=== PATIENT | male | born 2000 | race Caucasian/White ===

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

== ENCOUNTER 2021-06-20 10:34 | Inpatient (IN) | payer MEDICAID, SELFPAY ==
[~2021-06-20] VITALS: Ht 175.3 cm; Wt 77.1 kg
[2021-06-20 10:35] VITALS: BP 137/77
--- NOTE | 2021-06-20 10:35 | NUR ---
BIBA TO BED 11.
--- NOTE | 2021-06-20 10:35 | NUR ---
Patient BIBA to bed 11 at this time.
--- NOTE | 2021-06-20 10:36 | NUR ---
Dr. Dye at bedside evaluating patient.
[2021-06-20] MEDS ORDERED: MORPHINE SULFATE 4 MG/ML SYR IVP ONE ×2 (10:40→16:25)
[2021-06-20] MEDS ORDERED: ONDANSETRON 4 MG/2 ML VIAL IVP ONE (10:40)
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
--- NOTE | 2021-06-20 10:49 | NUR ---
RAD at bedside
--- NOTE | 2021-06-20 10:49 | NUR ---
Dimitry simon and blood samples handed to CPT Stephanie at ER bedside
--- NOTE | 2021-06-20 11:05 | NUR ---
Padding provided to support LLE. All pt needs met.
[2021-06-20 11:09] LABS: EOSINOPHILS % (AUTO) 0.1 % (0.0-4.0); HEMATOCRIT 24.9 % (36-52); HEMOGLOBIN 8.7 g/dL (12.0-18.0); LYMPHOCYTES % (AUTO) 7.1 % (20.5-51.1); MEAN CORPUSCULAR HEMOGLOBIN 31 pg (27-31); MEAN CORPUSCULAR HGB CONC 35 g/dL (33-37); MEAN CORPUSCULAR VOLUME 89.9 fL (80-94); MONOCYTES # (AUTO) 1.4 K/uL (0.8-1.0); MONOCYTES % (AUTO) 10.3 % (1.7-9.3); NEUTROPHILS # (AUTO) 11.7 K/uL (1.8-7.7); NEUTROPHILS % (AUTO) 82.5 % (42.2-75.2); PLATELET COUNT (AUTO) 383 K/uL (140-450); RED BLOOD CELL COUNT(AUTO) 2.78 MIL/uL (4.20-6.10); RED CELL DISTRIBUTION WIDTH 13.2 % (11.6-13.7); WHITE BLOOD COUNT (AUTO) 14.1 K/uL (4.5-11.0)
--- NOTE | 2021-06-20 11:27 | NUR ---
Pt states + relief 0/10 pain at this time
[2021-06-20 11:39] LABS: ALBUMIN 2.8 g/dL (3.4-5.0); ANION GAP 14.1 (8-16); CARBON DIOXIDE 27.3 mmol/L (21-32); CREATININE 0.7 mg/dL (0.6-1.3); POTASSIUM 3.4 mmol/L (3.5-5.1); TOTAL BILIRUBIN 3.6 mg/dL (0.0-1.0)
[2021-06-20 12:14] LABS: PROTHROMBIN TIME 10.4 secs (10.8-13.4)
--- NOTE | 2021-06-20 13:13 | NUR ---
Oral temperature 100.6*. Dr. Dye made aware of temperature and HR 123.
[2021-06-20] MEDS ORDERED: VANCOMYCIN 1,000 MG in DEXTROSE 5% 250 ML IV ONE (13:15)
[2021-06-20] MEDS ORDERED: NACL 0.9% 2,000 ML IV ONE (13:15)
--- NOTE | 2021-06-20 13:22 | NUR ---
CT consent form signed
[2021-06-20] MEDS ORDERED: cefTRIAXone 1,000 MG VIAL ONE (13:23)
--- NOTE | 2021-06-20 13:28 | NUR ---
1st L NS BOLUS @ 1320
--- NOTE | 2021-06-20 13:35 | NUR ---
Pt states pain relief; rates pain 2/10 denies nausea. All pt needs met. Advised to utilize call light for increased pain.
--- NOTE | 2021-06-20 13:36 | NUR ---
Pt d/c' from IVPB/IVF, front desk monitor and transported to CT by antonia.
--- NOTE | 2021-06-20 14:16 | NUR ---
Dr. Nicholas is evaluating pt at bedside
--- NOTE | 2021-06-20 14:20 | NUR ---
2nd 1000mL NS BOLUS initiated
--- NOTE | 2021-06-20 14:27 | NUR ---
US tech at bedside
[2021-06-20] MEDS ORDERED: VANCOMYCIN 1,000 MG VIAL ONE ×2 (14:36→22:17)
--- NOTE | 2021-06-20 14:47 | NUR ---
Patient states no pain at this time. 0/10. Denies nausea. Urinal provided per request.
--- NOTE | 2021-06-20 15:50 | NUR ---
Pt resting in position of comfort. Urinal provided at bedside.
[2021-06-20] MEDS ORDERED: ACETAMINOPHEN EXTRA STRENGTH 500 MG TAB PO ONE (16:25)
--- NOTE | 2021-06-20 16:30 | NUR ---
Pt voided 550ml discarded. New urinal provided.
--- NOTE | 2021-06-20 17:10 | NUR ---
Cooling measures in place. Ice packs provided to bilateral groin and axilla.
[2021-06-20] MEDS ORDERED: VANCOMYCIN PER PHARMACY MC PRN (17:35)
--- NOTE | 2021-06-20 18:11 | NUR ---
Pt reports positive relief to pain; remains 0/10 at this time denies nausea. net sorter remains in place showing HR 121. SpO2 94% on room air.
--- NOTE | 2021-06-20 19:08 | NUR ---
Oral temperature 99.6. Cooling measures remain in place.
[2021-06-20] MEDS ORDERED: ACET-5629 PO (19:28)
--- NOTE | 2021-06-20 19:30 | NUR ---
Report and transfer of care endorsed to CHAIM Harding
[2021-06-20] MEDS: VANCOMYCIN 1,000 MG in DEXTROSE 5% 250 ML IV SCH (21:00)
--- NOTE | 2021-06-20 21:21 | NUR ---
pt in a semi fowlers position. complained of hunger. provided a sandwhich until dinner arrived. pt c/o stomach pain secondardy to not eating. pt is eating at bed in a high semi fowlers position. pt is eating with no sign of diress. 1 side rail up. other side rail lowered to allow pt to eat.
[2021-06-20] MEDS: MORPHINE SULFATE 2 MG/ML SYR IVP PRN (21:58)
--- NOTE | 2021-06-20 22:00 | NUR ---
PT COMPLAINED OF BACK PAIN AND LEG PAIN. REMOVED GURNEY BLANKET TO PREVENT BED SORES. PT REPOSTIONED BY SWATHI TO CENTER OF BED IN A SEMI FOWLERS POSTION. X2 SIDEW RAILS UP FOR SAFETY
[2021-06-21] MEDS: MORPHINE SULFATE 4 MG/ML SYR IVP PRN ×3 (02:02→11:28)
--- NOTE | 2021-06-21 03:30 | NUR ---
The patient's care was reviewed and supervised by JACQUES MCDANIEL RN.
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
[2021-06-21 04:00] VITALS: BP 137/80
[2021-06-21] MEDS: MORPHINE SULFATE 2 MG/ML SYR IVP PRN ×3 (04:16→18:27)
[2021-06-21] MEDS ORDERED: VANCOMYCIN 1,000 MG VIAL ONE (04:42)
[2021-06-21] MEDS: VANCOMYCIN 1,000 MG in DEXTROSE 5% 250 ML IV SCH ×3 (05:11→21:03)
--- NOTE | 2021-06-21 05:49 | NUR ---
ROUNDED ON PATIENT. PATIENT ASLEEP. BREATHING EVEN AND UNLABORED WITH NO SOB NOTED. ALL SAFETY MEASURES IN PLACE. CALL LIGHT WITHIN REACH. WILL CONTINUE TO MONITOR.
--- NOTE | 2021-06-21 05:59 | NUR ---
Patient's Plan of Care was discussed and reviewed with ELECTRONIC COMPONENT PROCESSOR: SARAN CHILDERS
--- NOTE | 2021-06-21 07:06 | NUR ---
PICTURES WERE NOT ABLE TO OBTAIN PATIENT REFUSED TO BE TOUCH HIS LEFT LEG OR ANY PART OF HIS LOWER EXTREMITIES. WILL ENDORSE TO AM SHIFT TO TRY TO TAKE PICTURES.
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
--- NOTE | 2021-06-21 07:46 | NUR ---
ENDORSED PATIENT TO AM SHIFT NURSE FOR CONTINUITY OF CARE. PATIENT IS STABLE AT THIS TIME.
--- NOTE | 2021-06-21 07:51 | NUR ---
RECEIVED REPORT FROM ACID REMOVER FOR CONTINUITY OF CARE. BREATHING SYMMETRICAL. NO S/S OF DISTRESS. CALL LIGHT IN REACH. ALL SAFETY MEASURES IN PLACE. URINAL AT BEDSIDE
[2021-06-21 08:00] VITALS: BP 134/83
--- NOTE | 2021-06-21 08:15 | NUR ---
NEW ORDER FOR PHYSICAL THERAPY ENTERED. DINESH MONTIEL AWARE.
--- NOTE | 2021-06-21 08:58 | NUR ---
PATIENT HAS BEEN SCREENED AND CATEGORIZED MODERATE NUTRITION RISK. PATIENT WILL BE SEEN WITHIN 3-5 DAYS OF ADMISSION. 06/21/21 06/25/[address]
[2021-06-21 09:22] LABS: BASOPHILS % (AUTO) 0.2 % (0.0-2.0); EOSINOPHILS % (AUTO) 0.2 % (0.0-4.0); HEMATOCRIT 22.4 % (36-52); HEMOGLOBIN 7.8 g/dL (12.0-18.0); LYMPHOCYTES # (AUTO) 0.9 K/uL (2.0-11.5); LYMPHOCYTES % (AUTO) 7.4 % (20.5-51.1); MEAN CORPUSCULAR HEMOGLOBIN 31 pg (27-31); MEAN CORPUSCULAR HGB CONC 35 g/dL (33-37); MEAN CORPUSCULAR VOLUME 89.6 fL (80-94); MONOCYTES # (AUTO) 1.4 K/uL (0.8-1.0); MONOCYTES % (AUTO) 10.8 % (1.7-9.3); NEUTROPHILS # (AUTO) 10.2 K/uL (1.8-7.7); NEUTROPHILS % (AUTO) 81.4 % (42.2-75.2); PLATELET COUNT (AUTO) 439 K/uL (140-450); RED CELL DISTRIBUTION WIDTH 13.2 % (11.6-13.7); WHITE BLOOD COUNT (AUTO) 12.6 K/uL (4.5-11.0)
[2021-06-21 09:37] LABS: ALBUMIN 2.4 g/dL (3.4-5.0); ANION GAP 11.8 (8-16); CARBON DIOXIDE 27.8 mmol/L (21-32); CREATININE 0.6 mg/dL (0.6-1.3); POTASSIUM 3.6 mmol/L (3.5-5.1); TOTAL BILIRUBIN 2.4 mg/dL (0.0-1.0)
--- NOTE | 2021-06-21 11:30 | NUR ---
PT STATED PAIN IN LEFT LEG 02/06. PT MEDICATED PER MD ORDER. PT VERBALIZED UNDERSTANDING OF EDUCATION. NO S/S OF DISTRESS. CALL LIGHT IN REACH. ALL SAFETY MEASURES IN PLACE. Addendum: 06/21/21 at 1304 by Elder Mclaughlin RN RN PT REASSESSED. PT RESTING IN BED WITH EYES CLOSED. NO S/S OF DISTRESS
[2021-06-21 12:00] VITALS: BP 132/75
[2021-06-21] MEDS ORDERED: MAG SULF 2000 MG/WATER PREMIX 50 ML IV PRN (12:55)
[2021-06-21] MEDS ORDERED: DOCUSATE SODIUM 100 MG GELCAP PO PRN (12:55)
[2021-06-21] MEDS ORDERED: POTASSIUM CHLORIDE 10 MEQ TABER PO PRN (12:55)
[2021-06-21] MEDS ORDERED: ZOLPIDEM 5 MG TAB PO PRN (12:55)
[2021-06-21] MEDS ORDERED: ONDANSETRON 4 MG/2 ML VIAL IM/IVP PRN (12:55)
[2021-06-21] MEDS ORDERED: LORazepam 2 MG/ML VIAL IM/IVP PRN (12:55)
--- NOTE | 2021-06-21 13:05 | NUR ---
PHYSICAL THERAPY AT BEDSIDE. PT STATED PAIN IN LEFT LEG 04/08. PT MEDICATED PER MD ORDER. PT VERBALIZED UNDERSTANDING OF EDUCATION. NO S/S OF DISTRESS. CALL LIGHT IN REACH. ALL SAFETY MEASURES IN PLACE. PT HELPED BACK INTO BED. WILL REASSESS
[2021-06-21] MEDS: NACL 0.9% 1,000 ML IV SCH ×2 (13:11→22:55)
[2021-06-21 16:00] VITALS: BP 135/82
--- NOTE | 2021-06-21 16:34 | NUR ---
PT RESTING IN BED. BREATHING SYMMETRICAL. NO S/S OF DISTRESS. CALL LIGHT IN REACH. ALL SAFETY MEASURES IN PLACE. DENIES PAIN AT THIS TIME
[2021-06-21] MEDS: ACETAMINOPHEN 325 MG TAB PO PRN (19:00)
--- NOTE | 2021-06-21 19:03 | NUR ---
PT TEMP ELEVATED. ICE PACKS APPLIED. PT MEDICATED PER MD ORDER FOR FEVER. PT AGREED TO WOUND CARE TO REDUCE INFECTION. PHOTOS TAKEN. PT TOLERATED
--- NOTE | 2021-06-21 19:35 | NUR ---
RECEIVED ENDORSEMENT FROM RN DAYSHIFT NURSE AT BEDSIDE FOR CONTINUITY OF CARE, PT IN STABLE CONDITION.
--- NOTE | 2021-06-21 19:48 | NUR ---
ENDORSED PT TO DIRECTOR OF STRATEGIC PROGRAMS NURSE. ALL SAFETY MEASURES IN PLACE
[2021-06-21 20:00] VITALS: BP 129/70
--- NOTE | 2021-06-21 20:00 | NUR ---
PT LYING IN BED AOX4 HE HAS A RAC 20G INTACT AND RUNNING NORMAL SALINE AT 100MLS/HR. HE IS ON ROOM AIR AND DENIES PAIN AT THIS TIME. PICS WERE TAKEN OF WOUNDS ON LEG AND PRINTED OUT. NEW DRESSING COVER LEFT LEG WOUNDS. LEFT UPPER LEG IS EDEMATOUS WITH SMALL SCAB ON THE MIDDLE OF FRONT OF LEFT THIGH IS A DRY SCAB. PT GIVEN COOLING MEASURES FOR INCREASED TEMPERATURE. V/S FOLLOWS: T 98.4 P 103 R 16 B/P 129/70 02 100% ON ROOM AIR. PT REQUESTED INFORMATION REGARDING VISITORS WHICH WAS PROVIDED TO HIM. ALL UNIVERSAL FALLS PRECAUTIONS IN PLACE.
[2021-06-21] MEDS ORDERED: CRUSHER, PILL MC ONE (20:42)
--- NOTE | 2021-06-21 21:00 | NUR ---
PT RECEIVED ORDERED HEPARIN SQ FOR DVT PREVENTION WELL ORDERED VANCOMYCIN. PT DECLINED ORDERED LAMICTAL. PURPOSE OF MED,RISKS AND BENEFITS DISCUSSED. EDUCATION REGARDING ORDERED MEDICATION AND ITS PURPOSES PROVIDED AT BEDSIDE, PT VERBALIZED UNDERSTANDING.
--- NOTE | 2021-06-21 22:30 | NUR ---
ROUNDS DONE, PT DENIES ANY PAIN, PT REQUESTED NEEDS ATTENDED BY STAFF. ALL UNIVERSAL FALLS PRECAUTIONS IN PLACE.
[2021-06-21 22:31] LABS: MAGNESIUM 2.3 mg/dL (1.8-2.4); PHOSPHORUS 3.9 mg/dL (2.5-4.9); THYROID STIMULATING HORMONE 2.19 uIU/mL (0.34-3.74)
[2021-06-22] VITALS: BP 131/72
--- NOTE | 2021-06-22 00:30 | NUR ---
PT IN BED RESTING WITH EYES CLOSED, AROUSABLE TO NAME AND LIGHT TOUCH NO C/O VOICED V/S FOLLOWS: T 98.1 P 100 R 15 B/P 131/72 02 100% ON ROOM AIR. NORMAL SALINE BAG REPLACED. ALL UNIVERSAL FALLS PRECAUTIONS IN PLACE.
[2021-06-22 01:10] LABS: APPEARANCE,URINE CLEAR (CLEAR); BILIRUBIN,URINE NEGATIVE (NEGATIVE); BLOOD, URINE NEGATIVE (NEGATIVE); COLOR,URINE YELLOW (YELLOW); LEUKOCYTE ESTERASE ,URINE NEGATIVE (NEGATIVE); NITRITE, URINE NEGATIVE (NEGATIVE); PH,URINE 6.5 (5.0-9.0); UGLUCOSE NEGATIVE (NEGATIVE)
[2021-06-22 01:38] LABS: BARBITURATE, URINE NEGATIVE ng/ml (NEG <=200); BENZODIAZEPINE, URINE NEGATIVE ng/mL (NEG <=200); CANNABINOID, URINE POSITIVE ng/mL (NEG <=50); COCAINE, URINE NEGATIVE ng/mL (NEG <=300); PHENCYCLIDINE SCREEN,URINE NEGATIVE ng/mL (NEG <=25)
[2021-06-22 01:39] LABS: OPIATE, URINE POSITIVE ng/mL (NEG <=2000)
--- NOTE | 2021-06-22 01:59 | NUR ---
late entry- vancomycin discontinued at 1900
--- NOTE | 2021-06-22 02:00 | NUR ---
ROUNDS DONE, PT ASSISTED WITH TOILETING NEEDS. ALL UNIVERSAL FALLS PRECAUTIONS IN PLACE.
[2021-06-22] MEDS: MORPHINE SULFATE 4 MG/ML SYR IVP PRN ×5 (02:44→22:00)
--- NOTE | 2021-06-22 02:47 | NUR ---
PT IN A LOT OF PAIN HE WAS RESTLESS AND MOANING AND CRYING. PT GIVEN IVP/PRN MORPHINE FOR SEVERE PAIN.
[2021-06-22 04:00] VITALS: BP 120/68
--- NOTE | 2021-06-22 05:30 | NUR ---
VANCOMYCIN HUNG AND RUNNING ORDERED. URINAL EMPTIED. PT AWAKEN TO NAME AND LIGHT SHAKING BUT DROWSY. ALL UNIVERSAL FALLS PRECAUTIONS IN PLACE.
[2021-06-22 06:03] LABS: BASOPHILS % (AUTO) 0.3 % (0.0-2.0); EOSINOPHILS # (AUTO) 0.1 K/uL (0-0.4); EOSINOPHILS % (AUTO) 0.7 % (0.0-4.0); HEMATOCRIT 21.9 % (36-52); HEMOGLOBIN 7.6 g/dL (12.0-18.0); LYMPHOCYTES # (AUTO) 1.2 K/uL (2.0-11.5); LYMPHOCYTES % (AUTO) 10.6 % (20.5-51.1); MEAN CORPUSCULAR HEMOGLOBIN 31 pg (27-31); MEAN CORPUSCULAR HGB CONC 35 g/dL (33-37); MEAN CORPUSCULAR VOLUME 90.2 fL (80-94); MONOCYTES # (AUTO) 1.3 K/uL (0.8-1.0); MONOCYTES % (AUTO) 11.7 % (1.7-9.3); NEUTROPHILS # (AUTO) 8.4 K/uL (1.8-7.7); NEUTROPHILS % (AUTO) 76.7 % (42.2-75.2); PLATELET COUNT (AUTO) 516 K/uL (140-450); RED BLOOD CELL COUNT(AUTO) 2.43 MIL/uL (4.20-6.10); RED CELL DISTRIBUTION WIDTH 13.3 % (11.6-13.7)
[2021-06-22] MEDS: VANCOMYCIN 1,000 MG in DEXTROSE 5% 250 ML IV SCH ×2 (06:19→13:23)
[2021-06-22 06:25] LABS: ANION GAP 11.4 (8-16); CARBON DIOXIDE 26.1 mmol/L (21-32); CREATININE 0.6 mg/dL (0.6-1.3); POTASSIUM 3.5 mmol/L (3.5-5.1)
[2021-06-22 06:39] LABS: CHOL/HDL RATIO 8.9 (1-4.5); MAGNESIUM 2.2 mg/dL (1.8-2.4); PHOSPHORUS 3.9 mg/dL (2.5-4.9)
[2021-06-22 07:07] LABS: T4 (THYROXINE) 8.7 ug/dL (4.5-12.0)
[2021-06-22 08:00] VITALS: BP 125/74
--- NOTE | 2021-06-22 08:00 | NUR ---
RECEIVED REPORT FROM FISHING LINE WINDING MACHINE OPERATOR NURSE FOR CONTINUITY OF CARE. PT IS AOX4. PATIENT BREATHING IS EVEN AND UNLABORED. NO ACUTE DISTRESS NOTED. ON RA. PT IS RESTING. PLAN OF CARE DISCUSSED. SAFETY MEASURES IN PLACE. CALL LIGHT WITHIN REACH.
--- NOTE | 2021-06-22 08:38 | NUR ---
PT COMPLAINING OF 8/10 PAIN IN LEFT LEG. GIVEN PRN PAIN MEDS PER MD ORDER.
[2021-06-22] MEDS: NACL 0.9% 1,000 ML IV SCH ×2 (08:55→18:58)
--- NOTE | 2021-06-22 09:38 | NUR ---
PAIN REASSESSED. PATIENT BREATHING IS EVEN AND UNLABORED. NO ACUTE DISTRESS NOTED. SAFETY MEASURES IN PLACE. CALL LIGHT WITHIN REACH.
[2021-06-22 12:00] VITALS: BP 129/68
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
--- NOTE | 2021-06-22 13:24 | NUR ---
PT COMPLAINING OF 8/10 PAIN IN RIGHT ARM NOW. GIVEN PRN PAIN MEDS PER MD ORDER.
--- NOTE | 2021-06-22 13:30 | NUR ---
RIGHT IV DISCONTINUED DUE TOP INCREASING PAIN.
--- NOTE | 2021-06-22 13:35 | NUR ---
IV PLACED ON LEFT WRIST. IV IS PATENT AND INTACT.
--- NOTE | 2021-06-22 14:24 | NUR ---
PAIN REASSESSED. PAIN IS STILL ONGOING ON RIGHT ARM.
--- NOTE | 2021-06-22 15:00 | NUR ---
US VENOUS ON PT PER MD ORDER FOR WARMTH AND INCREASING RIGHT ARM PAIN , SUSPECTED DVT.
[2021-06-22 16:00] VITALS: BP 132/69
--- NOTE | 2021-06-22 16:00 | NUR ---
DVT IN PT RIGHT UPPER EXTREMITY. LOVENOX TREATMENT WILL BEGIN TONIGHT AND CONTINUE DAILY PER MD ORDER.
[2021-06-22] MEDS ORDERED: HEPARIN PER PHARMACY MC PRN (17:30)
[2021-06-22] MEDS ORDERED: LOVENOX 1MG/KG Q24H SUBQ ONE (18:20)
[2021-06-22] MEDS ORDERED: ENOXAPARIN 80 MG/0.8 ML SYR SUBQ SCH (18:45)
--- NOTE | 2021-06-22 18:59 | NUR ---
PT COMPLAINING OF 8/10 PAIN IN RIGHT ARM. GIVEN PRN PAIN MEDS PER MD ORDER.
--- NOTE | 2021-06-22 19:30 | NUR ---
RECEIVED REPORT AT BEDSIDE FROM DAYSHIFT NURSE AT BEDSIDE FOR CONTINUITY OF CARE, PT IN STABLE CONDITION.
--- NOTE | 2021-06-22 19:32 | NUR ---
ENDORSED TO RN PEDIATRIC NURSE FOR CONTINUITY OF CARE. INFORMED ABOUT DVT IN RIGHT UPPER EXTREMITY. PT IS STABLE.
[2021-06-22 20:00] VITALS: BP 126/77
--- NOTE | 2021-06-22 20:00 | NUR ---
PT LYING IN BED HE IS AOX4 ON ROOM AIR, AND HE HAS A LEFT F/A 22 GUAGE INTACT AND RUNNING NORMAL SALINE AT 100MLS/HR. PT HAS LEFT LEG ELEVATED WITH DRESSINGS DRY AND INTACT. V/S FOLLOWS: T 101.5 P 107 R 15 B/P 126/77 02 IS 98% ON ROOM AIR. PT GIVEN COOLING MEASURE OF MININ BED BATH AND ICE PACKS. WILL FOLLOW UP WITH TYLENOL. ALL REQUESTED NEEDS ATTENDED BY STAFF. ALL UNIVERSAL FALLS PRECAUTIONS IN PLACE.
[2021-06-22] MEDS: ACETAMINOPHEN 325 MG TAB PO PRN (21:44)
--- NOTE | 2021-06-22 22:15 | NUR ---
PT GIVEN TYLENOL FOR INCREASED TEMPERATURE. ALSO DUE VANCOMYCIN WAS HUNG AND RUNNING AT 167 ORDERED. PT UPSET BECAUSE OF RECENT DX OF BLOOD CLOT AND PAIN IN HIS RIGHT ARM. HE WAS SPEAKING TO FAMILY MEMBER WISHING THEM WELL FOR [place]. PT UPSET THAT HE WAS IN PAIN AND COULD NOT BE WITH HIS FAMILY PROVIDED SYMPATHETIC LISTENING. PT ALSO GIVEN REQUESTED MORPHINE FOR PAIN RELIEF AND MADE COMFORTABLE IN BED. WILL MONITOR FOR PAIN RELIEF.
--- NOTE | 2021-06-22 23:00 | NUR ---
ROUNDED ON PT AND ASSISTED WITH TOILETING NEEDS. ALL UNIVERSAL FALLS PRECAUTIONS IN PLACE.
[2021-06-23] VITALS: BP 120/74
--- NOTE | 2021-06-23 00:30 | NUR ---
PT RESTING IN BED AROUSABLE TO NAME AND LIGHT TOUCH. NO S/S OF PAIN OR DISTRESS NOTED. IV SITE ON RIGHT F/A INTACT AND CONTINUES AT 100MLS /HR. V/S FOLLOWS: T 99. P 96 R 18 B/P 120/74 02 99%. ALL FALLS PRECAUTIONS IN PLACE.
[2021-06-23] MEDS: GAUZE TP SCH ×2 (01:00→13:12)
[2021-06-23] MEDS: VANCOMYCIN 1,000 MG in DEXTROSE 5% 250 ML IV SCH ×3 (03:20→13:11)
[2021-06-23 04:00] VITALS: BP 123/76
[2021-06-23] MEDS: NACL 0.9% 1,000 ML IV SCH ×3 (04:55→21:20)
[2021-06-23] MEDS: MORPHINE SULFATE 4 MG/ML SYR IVP PRN ×3 (05:39→18:49)
--- NOTE | 2021-06-23 06:04 | NUR ---
PT WAS YELLING AND SCREAMING IN BED DUE TO PAIN HE WAS GIVEN MORPHINE 4MG IVP FOR SEVERE PAIN,. LABS DONE AT BEDSIDE. PT VANCOMYCIN HUNG AND RUNNING AT 167MLS/HR. ALL FALLS PRECAUTIONS IN PLACE.
[2021-06-23 06:28] LABS: BASOPHILS # (AUTO) 0.1 K/uL (0.00-0.22); BASOPHILS % (AUTO) 0.7 % (0.0-2.0); EOSINOPHILS # (AUTO) 0.2 K/uL (0-0.4); EOSINOPHILS % (AUTO) 1.4 % (0.0-4.0); HEMATOCRIT 23.9 % (36-52); HEMOGLOBIN 8.5 g/dL (12.0-18.0); LYMPHOCYTES # (AUTO) 1.4 K/uL (2.0-11.5); LYMPHOCYTES % (AUTO) 13.1 % (20.5-51.1); MEAN CORPUSCULAR HEMOGLOBIN 32 pg (27-31); MEAN CORPUSCULAR HGB CONC 36 g/dL (33-37); MEAN CORPUSCULAR VOLUME 89.5 fL (80-94); MONOCYTES # (AUTO) 1.3 K/uL (0.8-1.0); MONOCYTES % (AUTO) 12.2 % (1.7-9.3); NEUTROPHILS # (AUTO) 7.7 K/uL (1.8-7.7); NEUTROPHILS % (AUTO) 72.6 % (42.2-75.2); PLATELET COUNT (AUTO) 639 K/uL (140-450); RED BLOOD CELL COUNT(AUTO) 2.67 MIL/uL (4.20-6.10); RED CELL DISTRIBUTION WIDTH 13.7 % (11.6-13.7); WHITE BLOOD COUNT (AUTO) 10.6 K/uL (4.5-11.0)
[2021-06-23 06:59] LABS: MAGNESIUM 2.1 mg/dL (1.8-2.4); PHOSPHORUS 4.4 mg/dL (2.5-4.9)
[2021-06-23 07:10] LABS: ANION GAP 14.8 (8-16); CREATININE 0.7 mg/dL (0.6-1.3); POTASSIUM 3.8 mmol/L (3.5-5.1)
--- NOTE | 2021-06-23 07:30 | NUR ---
RECEIVED BEDSIDE REPORT FROM [facility] AND [facility] WELDER NURSE FOR CONTINUITY OF CARE. PT IS AWAKE AND ALERT. A&OX4. SR ON TELE MONITOR. URINAL AT BEDSIDE FOR VOIDING. IV FLUIDS INFUSING ORDERED IN THE LEFT FOREARM 22 GAUGE. LEFT LEG EDEMA WITH DOROTHEA INTACT ON WOUND. DENIES PAIN AT THIS TIME. PT IS STABLE. PLAN OF CARE DISCUSSED.
[2021-06-23 08:00] VITALS: BP 112/67
[2021-06-23] MEDS ORDERED: LOVENOX 1MG/KG Q24H SUBQ SCH (09:00)
[2021-06-23] MEDS: ENOXAPARIN 80 MG/0.8 ML SYR SUBQ SCH (09:21)
--- NOTE | 2021-06-23 09:24 | NUR ---
PT STATES HE HAS PAIN AT A SCALE OF 7/10 IN THE LEFT LEG AND BACK. PT WAS GIVEN MORPHINE FOR PAIN ORDERED. PT IS CRYING AND SCREAMING. WILL MONITOR PAIN.
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
[2021-06-23 12:00] VITALS: BP 109/53
--- NOTE | 2021-06-23 12:00 | NUR ---
PT WAS GIVEN A BED BATH AND LINENS WERE CHANGED. PT TOLERATED MOVEMENT POORLY. RIGHT ARM WITH DVT IMMOBILE. SWELLING NOTED AND REDNESS. IV FLUIDS ARE PATENT AND INFUSING. PT IS NOW RESTING IN SEMI FOWLERS POSITION. NO SOB NOTED.
[2021-06-23] MEDS: HYDROmorphone PFS 2 MG/ML SYR IVP PRN ×2 (13:19→23:16)
--- NOTE | 2021-06-23 13:19 | NUR ---
PT WAS GIVEN DILUADID IVP FOR PAIN OF 7/10 PRIOR TO DRESSING CHANGES ON THE LEFT LEG. BP WAS STABLE PRIOR TO ADMINISTRATION OF MEDICATION. WOUNDS WERE CLEANSED WITH NS AND PATTED DRY. NEW DRESSINGS APPLIED. PT WAS ALSO GIVEN TYLENOL FOR FEVER OF 100.5 F. WILL MONITOR FEVER AND PAIN.
[2021-06-23] MEDS: ACETAMINOPHEN 325 MG TAB PO PRN (13:21)
--- NOTE | 2021-06-23 15:30 | NUR ---
PT IS AWAKE WITH FAMILY AT BEDSIDE. ANSWERING QUESTIONS APPROPRIATELY. NO SOB. IV IS INFUSING. PT DENIES PAIN AT THIS TIME.
[2021-06-23 16:00] VITALS: BP 128/72
--- NOTE | 2021-06-23 17:30 | NUR ---
PT DENIES PAIN. LAYING IN SEMI FOWLERS POSITION. NO RESPIRATORY DISTRESS NOTED. DRESSINGS ON LEFT EXTREMITY DRY AND INTACT. PT STABLE.
--- NOTE | 2021-06-23 19:06 | NUR ---
WILL ENDORSE PT TO PILE DRIVER OPERATOR BARGE MOUNTED NURSE FOR CONTINUITY OF CARE. PT IS STABLE AT THIS TIME. PLAN OF CARE DISCUSSED.
[2021-06-23 20:00] VITALS: BP 125/72
[2021-06-23] MEDS: VANCOMYCIN HCL 1.25 GM in DEXTROSE 5% 250 ML IV SCH (21:18)
[2021-06-24] MEDS: GAUZE TP SCH ×2 (01:00→14:00)
[2021-06-24 04:00] VITALS: BP 119/67
[2021-06-24] MEDS: VANCOMYCIN HCL 1.25 GM in DEXTROSE 5% 250 ML IV SCH ×3 (04:39→20:41)
[2021-06-24] MEDS: HYDROmorphone PFS 2 MG/ML SYR IVP PRN ×3 (05:29→21:17)
[2021-06-24 06:40] LABS: MAGNESIUM 1.9 mg/dL (1.8-2.4); PHOSPHORUS 3.6 mg/dL (2.5-4.9)
[2021-06-24 06:50] LABS: ANION GAP 12.3 (8-16); CARBON DIOXIDE 23.1 mmol/L (21-32); CREATININE 0.8 mg/dL (0.6-1.3); POTASSIUM 3.4 mmol/L (3.5-5.1)
[2021-06-24 06:53] LABS: BASOPHILS % (AUTO) 0.4 % (0.0-2.0)
[2021-06-24 06:59] LABS: EOSINOPHILS # (AUTO) 0.2 K/uL (0-0.4); EOSINOPHILS % (AUTO) 1.7 % (0.0-4.0); HEMOGLOBIN 7.2 g/dL (12.0-18.0); LYMPHOCYTES # (AUTO) 1.1 K/uL (2.0-11.5); LYMPHOCYTES % (AUTO) 12.7 % (20.5-51.1); MEAN CORPUSCULAR HEMOGLOBIN 32 pg (27-31); MEAN CORPUSCULAR HGB CONC 35 g/dL (33-37); MEAN CORPUSCULAR VOLUME 91.2 fL (80-94); MONOCYTES % (AUTO) 11.8 % (1.7-9.3); NEUTROPHILS # (AUTO) 6.4 K/uL (1.8-7.7); NEUTROPHILS % (AUTO) 73.4 % (42.2-75.2); PLATELET COUNT (AUTO) 644 K/uL (140-450); RED BLOOD CELL COUNT(AUTO) 2.27 MIL/uL (4.20-6.10); RED CELL DISTRIBUTION WIDTH 13.8 % (11.6-13.7); WHITE BLOOD COUNT (AUTO) 8.8 K/uL (4.5-11.0)
[2021-06-24 07:01] LABS: HEMATOCRIT 20.9 % (36-52)
--- NOTE | 2021-06-24 07:23 | NUR ---
Assumed care last night. A/O x 4. Pain has been managed twice. On IV fluids. On Antibiotics. Lab has contacted us about his Cornell = 7, and Blood glucose = 676. Endorsed to Nishant RUCKER plus per ACCUCheck BG = 120. Nishant will be reporting the Cornell critical to Dr. Sherman. As foir the blood glucose, per accucheck = 120. Patient care has been endorsed to Nishant.
[2021-06-24] MEDS: ENOXAPARIN 80 MG/0.8 ML SYR SUBQ SCH (10:51)
[2021-06-24] MEDS: NACL 0.9% 1,000 ML IV SCH (11:00)
[2021-06-24 11:28] VITALS: BP 123/68
--- NOTE | 2021-06-24 14:57 | NUR ---
Received patient in am, sleeping, denied pain, am meds given, needs assist with meals. Wound care to the left leg done. Dilaudid IV given. tolerated wound care well.
[2021-06-24 16:00] VITALS: BP 122/70
[2021-06-24] MEDS: MORPHINE SULFATE 2 MG/ML SYR IVP PRN (18:34)
[2021-06-24 20:00] VITALS: BP 120/78
--- NOTE | 2021-06-24 20:12 | NUR ---
Assumed care. He is still c/o pain even though he has just received pain medication at around 1800. He then turned around and said he was feeling hot, he wants an ice pack. Started being emotional and crying. Ice pack has been provided. He is quiet now. Bed is in a low position. Call light within reach. Will continue to monitor.
--- NOTE | 2021-06-24 20:31 | NUR ---
A temp fo 100.4, and a HR of 108 has been reported. Will administer some Tylenol and provide more ICE packs. Will continue to monitor.
[2021-06-24] MEDS: ACETAMINOPHEN 325 MG TAB PO PRN (20:41)
[2021-06-25] MEDS: GAUZE TP SCH ×2 (02:37→12:50)
[2021-06-25] MEDS: NACL 0.9% 1,000 ML IV SCH ×3 (02:38→17:38)
[2021-06-25 04:00] VITALS: BP 127/73
[2021-06-25 04:08] LABS: BASOPHILS # (AUTO) 0.1 K/uL (0.00-0.22); BASOPHILS % (AUTO) 0.6 % (0.0-2.0); EOSINOPHILS # (AUTO) 0.2 K/uL (0-0.4); EOSINOPHILS % (AUTO) 2.1 % (0.0-4.0); HEMATOCRIT 24.5 % (36-52); HEMOGLOBIN 8.3 g/dL (12.0-18.0); LYMPHOCYTES # (AUTO) 1.4 K/uL (2.0-11.5); LYMPHOCYTES % (AUTO) 14.4 % (20.5-51.1); MEAN CORPUSCULAR HEMOGLOBIN 31 pg (27-31); MEAN CORPUSCULAR HGB CONC 34 g/dL (33-37); MONOCYTES # (AUTO) 1.1 K/uL (0.8-1.0); MONOCYTES % (AUTO) 11.5 % (1.7-9.3); NEUTROPHILS # (AUTO) 6.8 K/uL (1.8-7.7); NEUTROPHILS % (AUTO) 71.4 % (42.2-75.2); PLATELET COUNT (AUTO) 732 K/uL (140-450); RED BLOOD CELL COUNT(AUTO) 2.72 MIL/uL (4.20-6.10); RED CELL DISTRIBUTION WIDTH 14.1 % (11.6-13.7); WHITE BLOOD COUNT (AUTO) 9.5 K/uL (4.5-11.0)
[2021-06-25 04:36] LABS: ANION GAP 12.2 (8-16); CARBON DIOXIDE 26.9 mmol/L (21-32); CREATININE 0.6 mg/dL (0.6-1.3); POTASSIUM 4.1 mmol/L (3.5-5.1)
[2021-06-25 04:41] LABS: MAGNESIUM 1.9 mg/dL (1.8-2.4); PHOSPHORUS 4.3 mg/dL (2.5-4.9)
[2021-06-25] MEDS: HYDROmorphone PFS 2 MG/ML SYR IVP PRN ×2 (04:57→15:00)
[2021-06-25] MEDS: VANCOMYCIN HCL 1.25 GM in DEXTROSE 5% 250 ML IV SCH ×3 (05:29→21:28)
--- NOTE | 2021-06-25 07:23 | NUR ---
RECEIVED REPORT FROM STOCK CLERK NURSE. BREATHING SYMMETRICAL. NO S/S OF DISTRESS. CALL LIGHT IN REACH. ALL SAFETY MEASURES IN PLACE. IV RUNNING PER MD ORDER IN LEFT HAND.
[2021-06-25 08:00] VITALS: BP 113/70
[2021-06-25] MEDS: MORPHINE SULFATE 2 MG/ML SYR IVP PRN (10:52)
--- NOTE | 2021-06-25 10:53 | NUR ---
PT STATED PAIN 6/10 IN LEFT LEG AND RIGHT ARM. PT MEDICATED PER MD ORDER. PT VERBALIZED UNDERSTANDING OF EDUCATION. NO S/S OF DISTRESS. CALL LIGHT IN REACH. ALL SAFETY MEASURES IN PLACE
--- NOTE | 2021-06-25 11:52 | NUR ---
06/25/21 RD INITIAL ASSESSMENT COMPLETED PLEASE REFER TO NUTRITION ASSESSMENT UNDER CARE ACTIVITY FOR ESTIMATED NUTRITIONAL NEEDS. 1. CONTINUE REGULAR DIET TOLERATED 2. PROVIDE CHOCOLATE ENSURE BID 3. RD TO FOLLOW-UP 3-5 DAYS, MODERATE RISK REVIEWED BY CARMELO OLIVAS RD
[2021-06-25] MEDS: KETOROLAC 15 MG/ML VIAL IVP SCH ×2 (12:39→21:21)
--- NOTE | 2021-06-25 13:54 | NUR ---
PT RESTING IN BED. NO S/S OF DISTRESS. BREATHING SYMMETRICAL. CALL LIGHT IN REACH. ALL SAFETY MEASURES IN PLACE. IV RUNNING PER MD ORDERS
--- NOTE | 2021-06-25 15:10 | NUR ---
PHYSICAL THERAPY AT BEDSIDE. PT MEDICATED FOR PAIN 03/09. PT VERBALIZED UNDERSTANDING OF EDUCATION. ALL SAFETY MEASURES IN PLACE
[2021-06-25 16:00] VITALS: BP 122/74
--- NOTE | 2021-06-25 17:32 | NUR ---
PT RESTING IN BED. NO S/S OF DISTRESS. BREATHING SYMMETRICAL. CALL LIGHT IN REACH. ALL SAFETY MEASURES IN PLACE. IV RUNNING PER MD ORDERS
--- NOTE | 2021-06-25 19:56 | NUR ---
ENDORSED PT TO MACHINE REPAIRER MAINTENANCE NURSE
--- NOTE | 2021-06-25 20:00 | NUR ---
PATIENT AAOX4, IVF OF NS AT 100 ML/HR INFUSING, IV SITE ON LEFT HAND G#22 PATENT AND INTACT, USES URINAL TO VOID, DRESSINGS TO LEFT LEG SURGICAL SITES INTACT, DENIES PAIN AT THIS TIME, CALL LIGHT PLACED WITHIN REACH.
[2021-06-25] MEDS: APIXABAN 2.5 MG TAB PO SCH (21:22)
--- NOTE | 2021-06-26 | NUR ---
PATIENT SLEEPING, CALL LIGHT WITHIN REACH. IVF INFUSING.
[2021-06-26] MEDS: GAUZE TP SCH (01:29)
[2021-06-26] MEDS: NACL 0.9% 1,000 ML IV SCH (01:34)
[2021-06-26] MEDS: HYDROmorphone PFS 2 MG/ML SYR IVP PRN (02:27)
[2021-06-26 04:00] VITALS: BP 118/62
--- NOTE | 2021-06-26 04:00 | NUR ---
PATIENT ASLEEP, CALL LIGHT WITHIN REACH, DENIES PAIN.
[2021-06-26] MEDS: KETOROLAC 15 MG/ML VIAL IVP SCH (05:00)
--- NOTE | 2021-06-26 05:00 | NUR ---
TORADOL NOT GIVEN AT THIS TIME, PATIENT IS ASLEEP, DILAUDID 1 MG IVP WAS JUST GIVEN AT 0227.
[2021-06-26] MEDS: VANCOMYCIN HCL 1.25 GM in DEXTROSE 5% 250 ML IV SCH (05:26)
--- NOTE | 2021-06-26 06:34 | NUR ---
SLEEPING, AROUSABLE, IVF INFUSING, CALL LIGHT WITHIN REACH, DENIES PAIN.
--- NOTE | 2021-06-26 07:05 | NUR ---
RECEIVED ENDORSEMENT FROM DEPUTY SHERIFF K9 HANDLER NURSE FOR CONTINUITY OF CARE. PT AWAKE ON STABLE CONDITION.
--- NOTE | 2021-06-26 07:31 | NUR ---
ENDORSED PATIENT AND REPORT GIVEN TO MASON NEELY/SURGICAL LEAD FOR CONTINUITY OF CARE.
--- NOTE | 2021-06-26 08:00 | NUR ---
Patient's Plan of Care was discussed and reviewed with FELLING MACHINE OPERATOR: Nancy Webb
--- NOTE | 2021-06-26 09:00 | NUR ---
GIVEN MEDICATION ORDERED. TOLERATED WELL ALL SAFETY PRECAUTION IN PLACE.
[2021-06-26] MEDS: APIXABAN 2.5 MG TAB PO SCH (09:20)
[2021-06-26 09:24] LABS: BASOPHILS # (AUTO) 0.1 K/uL (0.00-0.22); BASOPHILS % (AUTO) 0.6 % (0.0-2.0); EOSINOPHILS # (AUTO) 0.2 K/uL (0-0.4); EOSINOPHILS % (AUTO) 1.9 % (0.0-4.0); HEMATOCRIT 25.7 % (36-52); HEMOGLOBIN 8.6 g/dL (12.0-18.0); LYMPHOCYTES # (AUTO) 1.5 K/uL (2.0-11.5); LYMPHOCYTES % (AUTO) 13.2 % (20.5-51.1); MEAN CORPUSCULAR HEMOGLOBIN 30 pg (27-31); MEAN CORPUSCULAR HGB CONC 33 g/dL (33-37); MEAN CORPUSCULAR VOLUME 90.3 fL (80-94); MONOCYTES % (AUTO) 8.6 % (1.7-9.3); NEUTROPHILS # (AUTO) 8.4 K/uL (1.8-7.7); NEUTROPHILS % (AUTO) 75.7 % (42.2-75.2); PLATELET COUNT (AUTO) 828 K/uL (140-450); RED BLOOD CELL COUNT(AUTO) 2.85 MIL/uL (4.20-6.10); RED CELL DISTRIBUTION WIDTH 14.1 % (11.6-13.7); WHITE BLOOD COUNT (AUTO) 11.1 K/uL (4.5-11.0)
[2021-06-26 09:42] LABS: ANION GAP 12.4 (8-16); CARBON DIOXIDE 26.5 mmol/L (21-32); CREATININE 0.6 mg/dL (0.6-1.3); POTASSIUM 3.9 mmol/L (3.5-5.1)
[2021-06-26 09:48] LABS: PHOSPHORUS 3.7 mg/dL (2.5-4.9)
[2021-06-26] MEDS ORDERED: VANCOMYCIN PER PHARMACY MC PRN (10:05)
[2021-06-26] MEDS ORDERED: APIX2.5 PO (10:34)
[2021-06-26] MEDS ORDERED: CEPH-588 PO (10:34)
[2021-06-26] MEDS ORDERED: IBUP-1842 PO (10:34)
--- NOTE | 2021-06-26 11:00 | NUR ---
TREATMENT DONE ON SURGICAL WOUND ON LEFT LEG AND HIP AND ALSO SHOW HOW HE GOING TO DO IT AT HOME. MOTHER AT BED SIDE. VERBALIZED UNDERSTANDING.
[2021-06-26 12:00] VITALS: BP 115/66
--- NOTE | 2021-06-26 12:35 | NUR ---
GIVEN ALL DISCHARGE INSTRUCTION WITH UNDERSTANDING. REMOVED IV WITH CATHETER INTACT AND NAME BAND REMOVED. WHEEL TO THEIR PRIVATE CAR ASSISTER TO GET IN TO THEIR CAR. PT ON STABLE CONDITION.
--- NOTE | 2021-06-26 13:07 | NUR ---
PHYSICAL THERAPY CO-SIGN The Physical Therapy Progress Notes documented by Pit Inspector have been reviewed. Reviewed/Co-Signed by: Celeste Sales Documentation Done by: HAYLEY MCCLELLAN PTA
== END 2021-06-26 12:35 | disposition home or self-care (01) | DRG 861 ==
LOC: MED 10:34 → MTU 17:41 → MMU 06-24 22:55
DX: G89.18 Other acute postprocedural pain (principal); R65.10 Systemic inflammatory response syndrome (SIRS) of non-infectious origin without acute organ dysfunction; E44.0 Moderate protein-calorie malnutrition; I82.611 Acute embolism and thrombosis of superficial veins of right upper extremity; F31.9 Bipolar disorder, unspecified; J45.909 Unspecified asthma, uncomplicated; F12.90 Cannabis use, unspecified, uncomplicated; M79.652 Pain in left thigh; Z20.822 Contact with and (suspected) exposure to COVID-19
CPT/HCPCS: 36415; 71275; 80048; 80053; 80202; 80305; 81003; 82150; 82948; 83036; 83605; 83690; 83735; 83880; 84100; 84134; 84436; 84443; 85025; 85610; 85730; 86886; 86900; 86901; 87040; 87081; 93971; 96365; 96375; 96376; 97110; 97112; 97163-GP; 97530; 99285; J0696; J1170; J1644; J1650; J1885; J2270; J2405; J3370; J7060; Q0092; Q9967

== ENCOUNTER 2021-07-02 12:23 | Emergency (ER) | payer MEDICAID, SELFPAY ==
[~2021-07-02] VITALS: Ht 175.3 cm; Wt 74.8 kg
[~2021-07-02 12:23] MED LIST changes: +ACET-5629 PO; +APIX2.5 PO; +CEPH-588 PO; +IBUP-1842 PO
[2021-07-02 12:27] VITALS: BP 112/80
[2021-07-02 13:20] VITALS: BP 112/80
--- NOTE | 2021-07-02 13:21 | NUR ---
Patient discharged with v/s stable. Written and verbal after care instructions given and explained. Patient verbalized understanding. Ambulatory with steady gait. All questions addressed prior to discharge. Advised to follow up with PMD.
== END 2021-07-02 13:21 | disposition home or self-care (01) ==
LOC: MED 12:23
DX: S71.102A Unspecified open wound, left thigh, initial encounter (principal); Z98.890 Other specified postprocedural states; Z79.899 Other long term (current) drug therapy; X58.XXXA Exposure to other specified factors, initial encounter; Y93.89 Activity, other specified; Y92.89 Other specified places as the place of occurrence of the external cause; Y99.8 Other external cause status
CPT/HCPCS: 99281

== ENCOUNTER 2021-07-12 05:20 | Emergency (ER) | payer MEDICAID ==
[~2021-07-12] VITALS: Ht 175.3 cm; Wt 77.1 kg
[2021-07-12] MEDS ORDERED: IBUPROFEN 400 MG TAB PO ONE (05:25)
[2021-07-12 05:32] VITALS: BP 121/68
[2021-07-12] MEDS ORDERED: IBUP-2218 PO (05:44)
[2021-07-12] MEDS ORDERED: HYDROcodone/APAP 5/325 MG 1 TAB TAB PO ONE (05:45)
--- NOTE | 2021-07-12 05:50 | NUR ---
10/10 SHOULDER PAIN THAT RADIATES TO BACK SINCE HE STARTED USING WALKER. RECENTLY HAS BEEN WORSE. SURGERY: LEFT LEG SURGERY RX:IBUPROFEN 400, KEFLEX AND ELIQUIS NKDA
[2021-07-12 06:00] VITALS: BP 121/68
== END 2021-07-12 06:00 | disposition home or self-care (01) ==
LOC: MED 05:20
DX: M79.602 Pain in left arm (principal); Z79.899 Other long term (current) drug therapy
CPT/HCPCS: 99283

== ENCOUNTER 2021-08-14 21:03 | Emergency (ER) | payer SELFPAY ==
[~2021-08-14] VITALS: Ht 175.3 cm; Wt 77.1 kg
[~2021-08-14 21:03] MED LIST changes: +IBUP-2218 PO
[2021-08-14 21:05] VITALS: BP 133/81
--- NOTE | 2021-08-14 21:05 | NUR ---
TO BED AMBULATORY
[2021-08-14] MEDS ORDERED: KETOROLAC 60 MG/2 ML VIAL IM ONE (21:10)
--- NOTE | 2021-08-14 21:24 | NUR ---
Dr. Jordan examining patient.
[2021-08-14] MEDS ORDERED: ONDANSETRON 4 MG ODT PO ONE (21:25)
[2021-08-14] MEDS ORDERED: IBUP-2213 PO (21:42)
[2021-08-14] MEDS ORDERED: ONDA8TAB87 PO (21:42)
--- NOTE | 2021-08-14 21:58 | NUR ---
PATIENT CLEARED FOR DISCHARGE AT THIS TIME. ADVISED TO FOLLOW UP WITH PCP AND RETURN IF CONDITION WORSENS. NO OTHER COMPLAINTS OR CONECRNS AT THIS TIME FOLLOWING GILDARDO ORELLANA.
[2021-08-14 22:08] VITALS: BP 133/81
== END 2021-08-14 21:58 | disposition home or self-care (01) ==
LOC: MED 21:03
DX: R11.2 Nausea with vomiting, unspecified (principal); R51.9 Headache, unspecified; Z98.890 Other specified postprocedural states; Z79.2 Long term (current) use of antibiotics; Z79.01 Long term (current) use of anticoagulants; Z79.899 Other long term (current) drug therapy; Z79.891 Long term (current) use of opiate analgesic
CPT/HCPCS: 96372; 99283; J1885; Q0162

== ENCOUNTER 2021-09-10 10:45 | Emergency (ER) | payer SELFPAY ==
[~2021-09-10] VITALS: Ht 175.3 cm; Wt 82.1 kg
[~2021-09-10 10:45] MED LIST changes: +IBUP-2213 PO; +ONDA8TAB87 PO
[2021-09-10 10:52] VITALS: BP 136/83
[2021-09-10] MEDS ORDERED: NAPR-54 PO (12:34)
[2021-09-10] MEDS ORDERED: OXYM15SP72 NS (12:34)
[2021-09-10 13:21] VITALS: BP 126/73
--- NOTE | 2021-09-10 13:21 | NUR ---
Patient discharged with v/s stable. Written and verbal after care instructions ABOUT UPPER RESPRIATORY INFECTION given and explained. Patient alert, oriented and verbalized understanding of instructions. Ambulatory with steady gait. All questions addressed prior to discharge. ID band removed. Patient advised to follow up with PMD. Rx of NAPROXEN, AFRIN given. Patient educated on indication of medication including possible reaction and side effects. Opportunity to ask questions provided and answered.
== END 2021-09-10 13:21 | disposition home or self-care (01) ==
LOC: MED 10:45
DX: J06.9 Acute upper respiratory infection, unspecified (principal)
CPT/HCPCS: 99283

== ENCOUNTER 2022-12-25 07:18 | Emergency (ER) | payer SELFPAY ==
[~2022-12-25] VITALS: Ht 162.6 cm; Wt 91.2 kg
[~2022-12-25 07:18] MED LIST changes: +NAPR-54 PO; +OXYM15SP72 NS
[2022-12-25 07:33] VITALS: BP 113/65; PULSE 83; RESP 20; TEMP 97.6; O2SAT 98
--- NOTE | 2022-12-25 07:36 | NUR ---
PT AMBULATED TO BED 07
[2022-12-25 08:05] VITALS: O2SAT 98
--- NOTE | 2022-12-25 08:05 | NUR ---
22YO MALE PT C/O THROAT PAIN X2DAYS. REPORTS SUDDEN ONSET W/ PAIN AT MOST ON SWALLOWING. WHITE LESIONS NOTED BACK OF THROAT. +NAUSEA. DENIES V/D, FEVER,CHILLS, ,SOB TAKING MEDICATION OR CONTACT W/ ANYONE SICK. PT AAOX4, HOB POSITIONED PER COMFORT HX:DENIES NKA
--- NOTE | 2022-12-25 08:20 | NUR ---
MD ELISE AT BEDSIDE FOR EVALUATION
[2022-12-25] MEDS ORDERED: DEXAMETHASONE 10 MG/ML VIAL IM ONE (08:25)
[2022-12-25] MEDS ORDERED: IBUPROFEN 400 MG TAB PO ONE (08:25)
--- NOTE | 2022-12-25 08:35 | NUR ---
pt swabbed for strep x2. walked to lab
[2022-12-25] MEDS ORDERED: NAPR-1704 PO (08:59)
[2022-12-25] MEDS ORDERED: PHEN177S23 PO (08:59)
--- NOTE | 2022-12-25 09:05 | NUR ---
Patient discharged with v/s stable. Written and verbal after care instructions FOR TONSILLITIS given and explained. Patient alert, oriented and verbalized understanding of instructions. Ambulatory with steady gait. All questions addressed prior to discharge. ID band removed. Patient advised to follow up with PMD. Rx of NAPROXEN AND PHENOL given. Opportunity to ask questions provided and answered.
--- NOTE | 2022-12-25 09:05 | NUR ---
The patient's care was reviewed and supervised by JUANPABLO HAND RN.
== END 2022-12-25 09:05 | disposition home or self-care (01) ==
LOC: MED 07:18
DX: J03.90 Acute tonsillitis, unspecified (principal); F12.90 Cannabis use, unspecified, uncomplicated; Z98.890 Other specified postprocedural states; Z79.899 Other long term (current) drug therapy; Z79.1 Long term (current) use of non-steroidal anti-inflammatories (NSAID); Z79.2 Long term (current) use of antibiotics; Z79.01 Long term (current) use of anticoagulants
CPT/HCPCS: 87081; 96372; 99283; J1100

== ENCOUNTER 2023-03-15 19:01 | Emergency (ER) | payer SELFPAY ==
[~2023-03-15] VITALS: Ht 175.3 cm; Wt 86.2 kg
[~2023-03-15 19:01] MED LIST changes: +NAPR-1704 PO; +PHEN177S23 PO
[2023-03-15 19:29] VITALS: BP 132/79; PULSE 68; RESP 16; TEMP 98.7; O2SAT 99
== END 2023-03-15 21:27 | disposition left against medical advice (07) ==
LOC: MED 19:01
DX: H57.10 Ocular pain, unspecified eye (principal); Z53.21 Procedure and treatment not carried out due to patient leaving prior to being seen by health care provider
CPT/HCPCS: 99281

== ENCOUNTER 2023-12-23 15:06 | Emergency (ER) | payer MEDICAID ==
[~2023-12-23] VITALS: Ht 177.8 cm; Wt 83.9 kg
[~2023-12-23 15:06] MED LIST changes: +NAPR-337 PO; -NAPR-54 PO
[2023-12-23 15:36] VITALS: BP 135/97; PULSE 74; RESP 16; TEMP 97.9; O2SAT 98
[2023-12-23] MEDS ORDERED: CEPH-588 PO (15:43)
== END 2023-12-23 15:54 | disposition home or self-care (01) ==
LOC: MED 15:06
DX: S71.112A Laceration without foreign body, left thigh, initial encounter (principal); F12.90 Cannabis use, unspecified, uncomplicated; Z79.1 Long term (current) use of non-steroidal anti-inflammatories (NSAID); Z79.899 Other long term (current) drug therapy; Z79.2 Long term (current) use of antibiotics; Z98.890 Other specified postprocedural states; X58.XXXA Exposure to other specified factors, initial encounter; Y93.89 Activity, other specified; Y92.89 Other specified places as the place of occurrence of the external cause; Y99.8 Other external cause status
CPT/HCPCS: 99283